=== PATIENT | female | born 1950 | race Caucasian/White ===

== ENCOUNTER 2017-03-07 10:24 | Emergency (ER) | payer MEDICARE ==
[2017-03-07 10:35] VITALS: BP 116/82
[2017-03-07] MEDS ORDERED: Sodium Chloride 0.9% 10 ML Syringe FLUSH PRN (10:54)
[2017-03-07] MEDS ORDERED: fentaNYL 100 MCG/2 ML SDV IVPUSH ONE (11:24)
--- NOTE | 2017-03-07 12:43 | EDM.PDOC ---
ED HPI GENERAL MEDICAL PROBLEM - General Chief Complaint: Abdominal Pain Stated Complaint: ABDOMINAL SWELLING Time Seen by Provider: 03/07/17 10:45 Source of Information: Reports: Patient History Limitations: Reports: No Limitations - History of Present Illness INITIAL COMMENTS - FREE TEXT/NARRATIVE: The patient presents with abdominal pain and abdominal distention. This has been going on for weeks. She has a history of liver problems. She had a paracentesis months ago. She had an US a few weeks ago that showed some ascities in pockets but nothing large enough to drain. She says she is more distended and she has more pain. She has no nausea, vomiting, fever, chills, cough, or chest pain. She may have some shortness of breath at times. Onset: Gradual Duration: Week(s): Location: Reports: Abdomen Quality: Reports: Pressure Severity: Moderate Improves with: Reports: None Worsens with: Reports: None Associated Symptoms: Reports: Shortness of Breath. Denies: Chest Pain, Cough, Fever/Chills, Nausea/Vomiting - Related Data Allergies Allergy/AdvReac Type Severity Reaction Status Date / Time diphenhydramine Allergy Hives Verified 03/07/17 10:36 hydromorphone [From Dilaudid] Allergy Hallucinati Verified 03/07/17 10:36 ons acetaminophen [From Tylenol] AdvReac liver Verified 03/07/17 10:36 disease ibuprofen AdvReac liver Verified 03/07/17 10:36 disease Home Meds: Home Meds Citalopram Hydrobromide [Citalopram HBr] 40 mg PO DAILY 08/04/13 [History] oxyCODONE 10 mg PO Q4H PRN 08/04/13 [History] Pantoprazole [ProTONIX] 40 mg PO DAILY 07/07/14 [History] Digoxin [Lanoxin] 125 mcg PO DAILY@1200 #30 tablet 10/10/14 [Rx] Lactose-Reduced Food [Boost] 237 ml PO DAILY 04/21/15 [History] Furosemide [Lasix] 20 mg PO DAILY #30 tablet 06/12/15 [Rx] Aspirin 81 mg PO BRK #100 tab.chew 11/01/15 [Rx] Metoprolol Tartrate [Lopressor] 75 mg PO Q12HR #90 tablet 11/01/15 [Rx] Rifaximin [Xifaxan] 1 tab PO DAILY 03/28/16 [History] Past Medical History HEENT History: Reports: Impaired Vision Other HEENT History: ear drum surgery, glasses, dentures, nasal surgery Cardiovascular History: Reports: Afib, Hypertension Respiratory History: Reports: Other (See Below) Other Respiratory History: R pleural effusion Gastrointestinal History: Reports: Cirrhosis, Hepatitis Other Gastrointestinal History: hepatitis C, esophageal varicies Genitourinary History: Reports: Urinary Incontinence [employer]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 Hematologic History: Reports: Anemia, Hemochromatosis Other Hematologic History: HCV Immunologic History: Reports: Other (See Below) Other Immunologic History: Hep C. Dermatologic History: Reports: Other (See Below) Other Dermatologic History: carbuncle and furbuncle to trunk - Infectious Disease History Infectious Disease History: Reports: Hepatitis C - Past Surgical History HEENT Surgical History: Reports: Naso-Sinus Surgery, Tonsillectomy GI Surgical History: Reports: Cholecystectomy, EGD, Hernia, Abdominal, Other ( See Below) Female Surgical History: Reports: Tubal Ligation Musculoskeletal Surgical History: Reports: Shoulder Surgery Social & Family History - Family History Family Medical History: Noncontributory Cardiac: Reports: Other (See Below) Other Cardiac Family History: Heart disease on Father's side. Oncologic: Reports: Other (See Below) Other Oncologic Family History: Mother had stomach, and lung CA. - Tobacco Use Smoking Status *Q: Former Smoker Years of Tobacco use: 30 Packs/Tins Daily: 0.5 Used Tobacco, but Quit: Yes Month Tobacco Last Used: "years ago" Second Hand Smoke Exposure: Yes - Caffeine Use Caffeine Use: Reports: Coffee - Alcohol Use Days Per Week of Alcohol Use: 0 - Recreational Drug Use Recreational Drug Use: No Drug Use in Last 12 Months: No - Living Situation & Occupation Living situation: Reports: , Other Occupation: Retired ED ROS GENERAL - Review of Systems Review Of Systems: See Below Constitutional: Reports: No Symptoms HEENT: Reports: No Symptoms Respiratory: Reports: No Symptoms Cardiovascular: Reports: No Symptoms Endocrine: Reports: No Symptoms GI/Abdominal: Reports: Abdominal Pain. Denies: Nausea, Vomiting : Reports: No Symptoms Musculoskeletal: Reports: No Symptoms Skin: Reports: No Symptoms Neurological: Reports: No Symptoms ED EXAM, GI/ABD - Physical Exam Exam: See Below Exam Limited By: No Limitations General Appearance: Alert, No Apparent Distress Ears: Normal External Exam Nose: Normal Inspection Head: Atraumatic, Normocephalic Neck: Normal Inspection Respiratory/Chest: No Respiratory Distress, Lungs Clear, Normal Breath Sounds Cardiovascular: Regular Rate, Rhythm, No Edema, No Murmur GI/Abdominal Exam: Soft, No Organomegaly, No Mass, Distended (Moderate) Course - Vital Signs Last Recorded V/S: Last Vital Signs Temp 97.8 F 03/07/17 10:30 Pulse 110 H 03/07/17 10:30 Resp 17 03/07/17 10:30 BP 116/82 03/07/17 10:30 Pulse Ox 97 03/07/17 10:30 - Orders/Labs/Meds Orders: Active Orders 24 hr Category Date Time Status Peripheral IV Care [RC] . DIRECTED Care 03/07/17 10:54 Active UA W/MICROSCOPIC [URIN] Stat Lab 03/07/17 10:42 Received Sodium Chloride 0.9% [Saline Flush] Med 03/07/17 10:54 Active 10 ml FLUSH ASDIRECTED PRN Peripheral IV Insertion Adult [OM.PC] Stat Oth 03/07/17 10:54 Ordered Medication Orders Sodium Chloride (Saline Flush) 10 ml FLUSH ASDIRECTED PRN PRN Reason: Keep Vein Open Last Admin: 03/07/17 11:01 Dose: 10 ml Labs: Laboratory Tests 03/07/17 03/07/17 03/07/17 Range/Units 11:00 11:00 11:00 WBC 3.41 L (3.98-10.04) K/mm3 RBC 4.53 (3.98-5.22) M/mm3 Hgb 13.2 (11.2-15.7) gm/L Hct 39.5 (34.1-44.9) % MCV 87.2 (79.4-94.8) fl MCH 29.1 (25.6-32.2) pg MCHC 33.4 (32.2-35.5) g/dl RDW Std Deviation 48.2 H (36.4-46.3) fL Plt Count 97 L (182-369) K/mm3 MPV 10.2 (9.4-12.3) fl Neut % (Auto) 72.1 H (34.0-71.1) % Lymph % (Auto) 12.3 L (19.3-51.7) % [place] % (Auto) 13.8 H (4.7-12.5) % Eos % (Auto) 1.2 (0.7-5.8) Baso % (Auto) 0.3 (0.1-1.2) % Neut # (Auto) 2.46 (1.56-6.13) K/mm3 Lymph # (Auto) 0.42 L (1.18-3.74) K/mm3 [place] # (Auto) 0.47 H (0.24-0.36) K/mm3 Eos # (Auto) 0.04 (0.04-0.36) K/mm3 Baso # (Auto) 0.01 (0.01-0.08) K/mm3 Manual Slide Review Abnormal smear Sodium 141 (136-145) mEq/L Potassium 3.4 L (3.5-5.1) mEq/L Chloride 106 (98-107) mEq/L Carbon Dioxide 28 (21-32) mEq/L Anion Gap 10.4 (5-15) BUN 9 (7-18) mg/dL Creatinine 0.9 (0.55-1.02) mg/dL Est Cr Clr Drug Dosing 61.26 mL/min Estimated GFR (MDRD) > 60 (>60) mL/min BUN/Creatinine Ratio 10.0 L (14-18) Glucose 120 H (80-115) mg/dL Calcium 8.9 (8.5-10.1) mg/dL Total Bilirubin 1.1 H (0.2-1.0) mg/dL AST 37 (15-37) U/L ALT 29 (14-59) U/L Alkaline Phosphatase 120 H (46-116) U/L Ammonia 32 (11-32) umol/L Total Protein 7.3 (6.4-8.2) g/dl Albumin 3.0 L (3.4-5.0) g/dl Globulin 4.3 gm/dL Albumin/Globulin Ratio 0.7 L (1-2) Lipase 153 (73-393) U/L Meds: Medications Generic Name Dose Route Start Last Admin Trade Name Rogelio PRN Reason Stop Dose Admin Sodium Chloride 10 ml 03/07/17 10:54 03/07/17 11:01 Saline Flush FLUSH 10 ml ASDIRECTED PRN Administration Keep Vein Open Discontinued Medications Generic Name Dose Route Start Last Admin Trade Name Rogelio PRN Reason Stop Dose Admin Fentanyl 100 mcg 03/07/17 11:24 03/07/17 11:58 Sublimaze IVPUSH 03/07/17 11:25 100 mcg ONETIME ONE Administration - Re-Assessments/Exams Free Text/Narrative Re-Assessment/Exam: 03/07/17 12:41 I ordered an IV saline lock, labs, UA and set up for paracentesis. I did the paracentesis and only got about 500mLs out. I was hoping for more but she feels better. Her WBC was a little low at 3.41. Her Hgb was normal. Her platelets are low at 97. Her K was 3.4. Her glucose was 120. Her total bili was 1.1. Her AST and ALT were both normal. Her ammonia was normal at 32. Her lipase was also normal. I will discharge her home. Departure - Departure Time of Disposition: 12:45 Disposition: Home, Self-Care 01 Condition: Good Clinical Impression: Thrombocytopenia Abdominal pain Qualifiers: Abdominal location: generalized Qualified Code(s): R10.84 - Generalized abdominal pain Cirrhosis Qualifiers: Hepatic cirrhosis type: unspecified hepatic cirrhosis Ascites presence: with ascites Qualified Code(s): K74.60 - Unspecified cirrhosis of liver Ascites Qualifiers: Ascites type: other type Qualified Code(s): R18.8 - Other ascites - Discharge Information Referrals: Susanne Barrett MD [Primary Care Provider] - 1 Week Forms: ED Department Discharge Additional Instructions: Take your medication as prescribed. Please return if you are worse. - My Orders Last 24 Hours: My Active Orders 03/07/17 10:42 UA W/MICROSCOPIC [URIN] Stat 03/07/17 10:54 Peripheral IV Care [RC] . DIRECTED Sodium Chloride 0.9% [Saline Flush] 10 ml FLUSH ASDIRECTED PRN Peripheral IV Insertion Adult [OM.PC] Stat - Assessment/Plan Last 24 Hours: My Active Orders 03/07/17 10:42 UA W/MICROSCOPIC [URIN] Stat 03/07/17 10:54 Peripheral IV Care [RC] . DIRECTED Sodium Chloride 0.9% [Saline Flush] 10 ml FLUSH ASDIRECTED PRN Peripheral IV Insertion Adult [OM.PC] Stat Paracentesis - Paracentesis Paracentesis Indication: ascites Location: RLQ Skin prep: CDC/MBT Guidelines, Sterile Drapes, Chlorhexidine Ultrasound guided: Yes Local anesthesia: lidocaine 1 % Local anesthesia volume: 5cc Number of Attempts: 1 Device Used: 8 Fr kit device Fluid: yellow Complications: No Dressing: adhesive dressing
== END 2017-03-07 13:05 | disposition home or self-care (01) ==
LOC: JD.ED 10:24
DX: K74.60 Unspecified cirrhosis of liver (principal); D69.6 Thrombocytopenia, unspecified; R18.8 Other ascites; I10 Essential (primary) hypertension; Z88.5 Allergy status to narcotic agent; Z88.6 Allergy status to analgesic agent; Z79.899 Other long term (current) drug therapy; Z79.82 Long term (current) use of aspirin; Z87.891 Personal history of nicotine dependence
CPT/HCPCS: 36415; 49082; 80053; 81001; 82140; 83690; 85025; 96374; 99284; C1729; J3010; J7050

== ENCOUNTER 2017-04-01 19:02 | Emergency (ER) | payer MEDICARE ==
[2017-04-01 19:26] VITALS: BP 116/72
[2017-04-01] MEDS ORDERED: Sodium Chloride 0.9% 10 ML Syringe FLUSH PRN (19:36)
--- NOTE | 2017-04-01 20:16 | EDM.PDOC ---
ED HPI GENERAL MEDICAL PROBLEM - General Chief Complaint: Abdominal Pain Stated Complaint: SWOLLEN STOMACH Time Seen by Provider: 04/01/17 19:35 Source of Information: Reports: Patient History Limitations: Reports: No Limitations - History of Present Illness INITIAL COMMENTS - FREE TEXT/NARRATIVE: The patient is a 66-year-old female with a history of hepatitis C and chronic end-stage liver disease who presents with abdominal distention. She states that she's had gradual worsening of abdominal distention over the past couple of weeks. She saw Dr. Schulte and in the emergency department recently and he drained ascites at that time. Since then she's had reaccumulation of her distention. She has not seen her green building design specialist in the meanwhile. States that she had been requiring regular paracenteses but then had been doing well for the last several months and it hadn't been needed. Her spironolactone was discontinued a couple months ago due to hypotension. Since then it sounds like her abdominal distentions been worsening. Minimal abdominal discomfort. No fever. She does complain of decreased appetite. No vomiting. No additional complaint. Abdomen Pain Score (Numeric/FACES): 2 - Related Data Allergies Allergy/AdvReac Type Severity Reaction Status Date / Time diphenhydramine Allergy Hives Verified 03/07/17 10:36 hydromorphone [From Dilaudid] Allergy Hallucinati Verified 03/07/17 10:36 ons acetaminophen [From Tylenol] AdvReac liver Verified 03/07/17 10:36 disease ibuprofen AdvReac liver Verified 03/07/17 10:36 disease Home Meds: Home Meds Citalopram Hydrobromide [Citalopram HBr] 20 mg PO DAILY 08/04/13 [History] oxyCODONE 10 mg PO Q4H PRN 08/04/13 [History] Pantoprazole [ProTONIX] 40 mg PO BID 07/07/14 [History] Furosemide [Lasix] 20 mg PO DAILY #30 tablet 06/12/15 [Rx] Aspirin 81 mg PO BRK #100 tab.chew 11/01/15 [Rx] Rifaximin [Xifaxan] 1 tab PO BID 03/28/16 [History] Aspirin [Halfprin] 81 mg PO DAILY 04/01/17 [History] Citalopram Hydrobromide [Celexa] 20 mg PO DAILY 04/01/17 [History] Digoxin [Lanoxin] 125 mcg PO DAILY 04/01/17 [History] Metoprolol Tartrate 25 mg PO BEDTIME 04/01/17 [History] Metoprolol Tartrate [Lopressor] 12.5 mg PO DAILY 04/01/17 [History] Past Medical History HEENT History: Reports: Impaired Vision Other HEENT History: ear drum surgery, glasses, dentures, nasal surgery Cardiovascular History: Reports: Afib, Hypertension Respiratory History: Reports: Other (See Below) Other Respiratory History: R pleural effusion Gastrointestinal History: Reports: Cirrhosis, Hepatitis Other Gastrointestinal History: hepatitis C, esophageal varicies Genitourinary History: Reports: Urinary Incontinence [employer]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 Hematologic History: Reports: Anemia, Hemochromatosis Other Hematologic History: HCV Immunologic History: Reports: Other (See Below) Other Immunologic History: Hep C. Dermatologic History: Reports: Other (See Below) Other Dermatologic History: carbuncle and furbuncle to trunk - Infectious Disease History Infectious Disease History: Reports: Hepatitis C - Past Surgical History Head Surgeries/Procedures: Reports: None HEENT Surgical History: Reports: Naso-Sinus Surgery, Tonsillectomy GI Surgical History: Reports: Cholecystectomy, EGD, Hernia, Abdominal, Other ( See Below) Female Surgical History: Reports: Tubal Ligation Endocrine Surgical History: Reports: None Musculoskeletal Surgical History: Reports: Shoulder Surgery Social & Family History - Family History Family Medical History: Noncontributory Cardiac: Reports: Other (See Below) Other Cardiac Family History: Heart disease on Father's side. Oncologic: Reports: Other (See Below) Other Oncologic Family History: Mother had stomach, and lung CA. - Tobacco Use Smoking Status *Q: Current Every Day Smoker Years of Tobacco use: 40 Packs/Tins Daily: 0.7 Used Tobacco, but Quit: Yes Month Tobacco Last Used: "years ago" Second Hand Smoke Exposure: Yes - Caffeine Use Caffeine Use: Reports: Coffee, Soda - Alcohol Use Days Per Week of Alcohol Use: 0 - Recreational Drug Use Recreational Drug Use: No Drug Use in Last 12 Months: No - Living Situation & Occupation Living situation: Reports: , Other Occupation: Retired ED ROS GENERAL - Review of Systems Review Of Systems: See Below Constitutional: Denies: Fever HEENT: Reports: No Symptoms Respiratory: Denies: Shortness of Breath Cardiovascular: Denies: Chest Pain Endocrine: Reports: No Symptoms GI/Abdominal: Denies: Abdominal Pain : Denies: Dysuria Musculoskeletal: Reports: No Symptoms Skin: Reports: No Symptoms Neurological: Reports: No Symptoms ED EXAM, GI/ABD - Physical Exam Exam: See Below Exam Limited By: No Limitations General Appearance: Alert, WD/WN, No Apparent Distress Eyes: Bilateral: Normal Appearance Ears: Normal External Exam Nose: Normal Inspection Throat/Mouth: Normal Inspection, Normal Oropharynx, Normal Voice Head: Atraumatic, Normocephalic Neck: Normal Inspection, Supple, Non-Tender, Full Range of Motion Respiratory/Chest: No Respiratory Distress, Lungs Clear, Normal Breath Sounds, Chest Non-Tender Cardiovascular: Normal Peripheral Pulses, Regular Rate, Rhythm GI/Abdominal Exam: Soft, Other (Mildly distended but soft, positive fluid wave) Back Exam: Normal Inspection Extremities: Normal Inspection Neurological: Alert, Oriented, Normal Cognition, No Motor/Sensory Deficits Psychiatric: Normal Affect, Normal Mood Skin Exam: Warm, Dry, Intact, Normal Color, No Rash Course - Vital Signs Last Recorded V/S: Last Vital Signs Temp 36.3 C 04/01/17 19:24 Pulse 110 H 04/01/17 19:24 Resp 20 04/01/17 19:24 BP 116/72 04/01/17 19:24 Pulse Ox 94 L 04/01/17 19:24 - Orders/Labs/Meds Orders: Active Orders 24 hr Category Date Time Status Peripheral IV Care [RC] . DIRECTED Care 04/01/17 19:37 Active Sodium Chloride 0.9% [Saline Flush] Med 04/01/17 19:36 Active 10 ml FLUSH ASDIRECTED PRN Peripheral IV Insertion Adult [OM.PC] Routine Oth 04/01/17 19:36 Ordered Medication Orders Sodium Chloride (Saline Flush) 10 ml FLUSH ASDIRECTED PRN PRN Reason: Keep Vein Open Last Admin: 12/17/17 19:56 Dose: 10 ml Labs: Laboratory Tests 04/01/17 04/01/17 04/01/17 Range/Units 19:50 19:50 19:50 WBC 3.34 L (3.98-10.04) K/mm3 RBC 4.21 (3.98-5.22) M/mm3 Hgb 12.1 (11.2-15.7) gm/L Hct 35.9 (34.1-44.9) % MCV 85.3 (79.4-94.8) fl MCH 28.7 (25.6-32.2) pg MCHC 33.7 (32.2-35.5) g/dl RDW Std Deviation 48.2 H (36.4-46.3) fL Plt Count 96 L (182-369) K/mm3 MPV 10.3 (9.4-12.3) fl Neut % (Auto) 66.7 (34.0-71.1) % Lymph % (Auto) 16.8 L (19.3-51.7) % [place] % (Auto) 15.3 H (4.7-12.5) % Eos % (Auto) 0.6 L (0.7-5.8) Baso % (Auto) 0.3 (0.1-1.2) % Neut # (Auto) 2.23 (1.56-6.13) K/mm3 Lymph # (Auto) 0.56 L (1.18-3.74) K/mm3 [place] # (Auto) 0.51 H (0.24-0.36) K/mm3 Eos # (Auto) 0.02 L (0.04-0.36) K/mm3 Baso # (Auto) 0.01 (0.01-0.08) K/mm3 Manual Slide Review Abnormal smear PT 16.0 H (8.0-13.0) SECONDS INR 1.43 Sodium 140 (136-145) mEq/L Potassium 3.4 L (3.5-5.1) mEq/L Chloride 104 (98-107) mEq/L Carbon Dioxide 28 (21-32) mEq/L Anion Gap 11.4 (5-15) BUN 6 L (7-18) mg/dL Creatinine 0.9 (0.55-1.02) mg/dL Est Cr Clr Drug Dosing 59.97 mL/min Estimated GFR (MDRD) > 60 (>60) mL/min BUN/Creatinine Ratio 6.7 L (14-18) Glucose 87 (80-115) mg/dL Calcium 8.3 L (8.5-10.1) mg/dL Total Bilirubin 1.2 H (0.2-1.0) mg/dL AST 30 (15-37) U/L ALT 18 (14-59) U/L Alkaline Phosphatase 102 (46-116) U/L Troponin I < 0.017 (0.00-0.056) ng/mL Total Protein 6.9 (6.4-8.2) g/dl Albumin 2.9 L (3.4-5.0) g/dl Globulin 4.0 gm/dL Albumin/Globulin Ratio 0.7 L (1-2) Lipase 109 (73-393) U/L Meds: Medications Generic Name Dose Route Start Last Admin Trade Name Freq PRN Reason Stop Dose Admin Sodium Chloride 10 ml 04/01/17 19:36 04/01/17 19:56 Saline Flush FLUSH 10 ml ASDIRECTED PRN Administration Keep Vein Open - Re-Assessments/Exams Free Text/Narrative Re-Assessment/Exam: 04/01/17 21:27 Lab significant for creatinine 0.9, bilirubin 1.2, no transaminitis, normal CBC. Bedside ultrasound shows mild ascites. She does not have tense ascites, and is only mildly distended. I don't think that she needs a diagnostic paracentesis tonight. I also think that she can wait for therapeutic paracentesis. There is no indication for an emergency paracentesis at this time. I discussed this with the patient. Encouraged her to follow-up with her green building design specialist who she has not seen recently. Her specialist may consider restarting her spironolactone given that her blood pressure appears to be improved. They can also schedule her for regular paracenteses as needed. Discussed return precautions. Departure - Departure Time of Disposition: 21:21 Disposition: Home, Self-Care 01 Clinical Impression: Ascites Qualifiers: Ascites type: other type Qualified Code(s): R18.8 - Other ascites - Discharge Information Instructions: Ascites Referrals: Susanne Barrett MD [Primary Care Provider] - Forms: ED Department Discharge Additional Instructions: 1. Follow up with your green building design specialist as soon as possible 2. Return to the ED if you have new or worsening concerning symptoms, including worsening abdominal pain, fever, or severe distension - My Orders Last 24 Hours: My Active Orders 04/01/17 19:36 Sodium Chloride 0.9% [Saline Flush] 10 ml FLUSH ASDIRECTED PRN Peripheral IV Insertion Adult [OM.PC] Routine 04/01/17 19:37 Peripheral IV Care [RC] . DIRECTED - Assessment/Plan Last 24 Hours: My Active Orders 04/01/17 19:36 Sodium Chloride 0.9% [Saline Flush] 10 ml FLUSH ASDIRECTED PRN Peripheral IV Insertion Adult [OM.PC] Routine 04/01/17 19:37 Peripheral IV Care [RC] . DIRECTED
== END 2017-04-01 21:40 | disposition home or self-care (01) ==
LOC: JD.ED 19:02
DX: R18.8 Other ascites (principal); Z88.5 Allergy status to narcotic agent; Z88.6 Allergy status to analgesic agent; K72.90 Hepatic failure, unspecified without coma; I10 Essential (primary) hypertension; I48.91 Unspecified atrial fibrillation; F17.210 Nicotine dependence, cigarettes, uncomplicated; Z79.82 Long term (current) use of aspirin; Z90.49 Acquired absence of other specified parts of digestive tract; Z98.890 Other specified postprocedural states
CPT/HCPCS: 36415; 80053; 83690; 84484; 85025; 85610; 99284; J7050; 99283

== ENCOUNTER 2017-05-17 18:46 | Emergency (ER) | payer MEDICARE ==
[2017-05-17 19:07] VITALS: BP 121/68
[2017-05-17] MEDS ORDERED: Sodium Chloride 0.9% 10 ML Syringe FLUSH PRN (19:08)
[2017-05-17] MEDS ORDERED: Morphine 2 MG/ML Syringe IVPUSH ONE ×3 (19:17→20:58)
[2017-05-17] MEDS ORDERED: Famotidine 20 MG/2 ML SDV IVPUSH ONE (19:17)
[2017-05-17] MEDS ORDERED: Ondansetron 4 MG/2 ML SDV IVPUSH ONE (19:17)
[2017-05-17] MEDS ORDERED: Sodium Chloride 0.9% 500 ML IV ONE (19:21)
--- NOTE | 2017-05-17 19:59 | EDM.PDOC ---
ED HPI GENERAL MEDICAL PROBLEM - General Chief Complaint: Abdominal Pain Stated Complaint: abdominal pain Time Seen by Provider: 05/17/17 19:01 Source of Information: Reports: Patient, RN Notes Reviewed - History of Present Illness INITIAL COMMENTS - FREE TEXT/NARRATIVE: 66-year-old female with history of hep C that had paracentesis yesterday and also had EGD. She states that she had a varicosity cauterized lower esophagus. She did well with all of that but today does have severe pain upper mid abdomen , lower anterior chest. He states it is painful to swallow. She has been drinking very small amounts of water. Is not eaten anything appreciably. Is supposed to be on clear liquids for a few days. No fever or chills. She is not short of breath and there is no pain with deep breathing. No radiation of pain to her back. Upper Abdomen Pain Score (Numeric/FACES): 10 - Related Data Allergies Allergy/AdvReac Type Severity Reaction Status Date / Time diphenhydramine Allergy Hives Verified 05/17/17 19:48 hydromorphone [From Dilaudid] Allergy Hallucinati Verified 05/17/17 19:48 ons acetaminophen [From Tylenol] AdvReac liver Verified 05/17/17 19:48 disease ibuprofen AdvReac liver Verified 05/17/17 19:48 disease Home Meds: Home Meds oxyCODONE 10 mg PO Q4H PRN 08/04/13 [History] Pantoprazole [ProTONIX] 40 mg PO BID 07/07/14 [History] Rifaximin [Xifaxan] 550 mg PO BID 03/28/16 [History] Aspirin [Halfprin] 81 mg PO DAILY 04/01/17 [History] Citalopram Hydrobromide [Celexa] 20 mg PO DAILY 04/01/17 [History] Digoxin [Lanoxin] 125 mcg PO DAILY 04/01/17 [History] Metoprolol Tartrate [Lopressor] 50 mg PO BID 04/01/17 [History] Furosemide [Lasix] 40 mg PO DAILY 05/17/17 [History] Midodrine 5 mg PO DAILY 05/17/17 [History] Spironolactone [Aldactone] 25 mg PO DAILY 05/17/17 [History] Past Medical History HEENT History: Reports: Impaired Vision Other HEENT History: ear drum surgery, glasses, dentures, nasal surgery Cardiovascular History: Reports: Afib, Hypertension Respiratory History: Reports: Other (See Below) Other Respiratory History: R pleural effusion Gastrointestinal History: Reports: Cirrhosis, Hepatitis Other Gastrointestinal History: hepatitis C, esophageal varicies Genitourinary History: Reports: Urinary Incontinence [employer] History: Reports: , Other (See Below) Other OB/BYN History: esophageal varicies Musculoskeletal History: Reports: Osteoarthritis Other Musculoskeletal History: R shoulder pain after fall at 2015 Neurological History: Reports: None Psychiatric History: Reports: Anxiety, Depression, Other (See Below) Other Psychiatric History: gets anxious and sometimes needs medication while in the hospital. Hematologic History: Reports: Anemia, Hemochromatosis Other Hematologic History: HCV Immunologic History: Reports: Other (See Below) Other Immunologic History: Hep C. Dermatologic History: Reports: Other (See Below) Other Dermatologic History: carbuncle and furbuncle to trunk - Infectious Disease History Infectious Disease History: Reports: Hepatitis C - Past Surgical History Head Surgeries/Procedures: Reports: None HEENT Surgical History: Reports: Naso-Sinus Surgery, Tonsillectomy GI Surgical History: Reports: Cholecystectomy, EGD, Hernia, Abdominal, Other ( See Below) Female Surgical History: Reports: Tubal Ligation Endocrine Surgical History: Reports: None Musculoskeletal Surgical History: Reports: Shoulder Surgery Social & Family History - Family History Family Medical History: Noncontributory Cardiac: Reports: Other (See Below) Other Cardiac Family History: Heart disease on Father's side. Oncologic: Reports: Other (See Below) Other Oncologic Family History: Mother had stomach, and lung CA. - Tobacco Use Smoking Status *Q: Unknown Ever Smoked Years of Tobacco use: 40 Packs/Tins Daily: 0.7 Used Tobacco, but Quit: Yes Month Tobacco Last Used: "years ago" Second Hand Smoke Exposure: Yes - Caffeine Use Caffeine Use: Reports: Coffee - Alcohol Use Days Per Week of Alcohol Use: 0 - Recreational Drug Use Recreational Drug Use: No Drug Use in Last 12 Months: No - Living Situation & Occupation Living situation: Reports: , Other Occupation: Retired ED ROS GENERAL - Review of Systems Review Of Systems: See Below Constitutional: Denies: Fever, Chills, Diaphoresis HEENT: Denies: Throat Pain Respiratory: Denies: Shortness of Breath, Pleuritic Chest Pain Cardiovascular: Reports: Chest Pain (Lower anterior chest worse with swallowing) GI/Abdominal: Reports: Abdominal Pain (Upper mid abdomen), Decreased Appetite. Denies: Nausea, Vomiting Musculoskeletal: Denies: Back Pain Skin: Reports: No Symptoms Neurological: Reports: No Symptoms ED EXAM, GI/ABD - Physical Exam Exam: See Below General Appearance: Alert, Mild Distress Eyes: Bilateral: Normal Appearance Throat/Mouth: Other Head: No: Facial Swelling (Mucosa mildly dry) Neck: Supple, Full Range of Motion Respiratory/Chest: No Respiratory Distress, Lungs Clear, Normal Breath Sounds Cardiovascular: Regular Rate, Rhythm GI/Abdominal Exam: Tender (Mild upper mid abdominal tenderness lower abdomen nontender). No: Guarding, Rebound Back Exam: No: CVA Tenderness (L), CVA Tenderness (R) Extremities: Normal Inspection. No: Pedal Edema, Leg Pain Neurological: Alert, Oriented, No Motor/Sensory Deficits Skin Exam: Warm, Dry, Normal Color Course - Vital Signs Last Recorded V/S: Last Vital Signs Temp 97 F 05/17/17 19:04 Pulse 98 05/17/17 19:04 Resp 18 05/17/17 19:04 BP 121/68 05/17/17 19:04 Pulse Ox 97 05/17/17 19:04 - Orders/Labs/Meds Orders: Active Orders 24 hr Category Date Time Status Peripheral IV Care [RC] . DIRECTED Care 05/17/17 19:09 Active Chest 1V Frontal [CR] Stat Exams 05/17/17 19:59 Taken Sodium Chloride 0.9% [Saline Flush] Med 05/17/17 19:08 Active 10 ml FLUSH ASDIRECTED PRN Peripheral IV Insertion Adult [OM.PC] Stat Oth 05/17/17 19:08 Ordered Medication Orders Sodium Chloride (Saline Flush) 10 ml FLUSH ASDIRECTED PRN PRN Reason: Keep Vein Open Last Admin: 05/17/17 19:38 Dose: 10 ml Labs: Laboratory Tests 05/17/17 05/17/17 Range/Units 19:22 19:22 WBC 5.72 (3.98-10.04) K/mm3 RBC 4.79 (3.98-5.22) M/mm3 Hgb 13.4 (11.2-15.7) gm/L Hct 40.1 (34.1-44.9) % MCV 83.7 (79.4-94.8) fl MCH 28.0 (25.6-32.2) pg MCHC 33.4 (32.2-35.5) g/dl RDW Std Deviation 53.4 H (36.4-46.3) fL Plt Count 115 L (182-369) K/mm3 MPV 10.1 (9.4-12.3) fl Neut % (Auto) 76.8 H (34.0-71.1) % Lymph % (Auto) 10.7 L (19.3-51.7) % [place] % (Auto) 12.1 (4.7-12.5) % Eos % (Auto) 0 L (0.7-5.8) Baso % (Auto) 0.2 (0.1-1.2) % Neut # (Auto) 4.40 (1.56-6.13) K/mm3 Lymph # (Auto) 0.61 L (1.18-3.74) K/mm3 [place] # (Auto) 0.69 H (0.24-0.36) K/mm3 Eos # (Auto) 0.00 L (0.04-0.36) K/mm3 Baso # (Auto) 0.01 (0.01-0.08) K/mm3 Sodium 138 (136-145) mEq/L Potassium 3.8 (3.5-5.1) mEq/L Chloride 101 (98-107) mEq/L Carbon Dioxide 28 (21-32) mEq/L Anion Gap 12.8 (5-15) BUN 8 (7-18) mg/dL Creatinine 1.0 (0.55-1.02) mg/dL Est Cr Clr Drug Dosing 53.98 mL/min Estimated GFR (MDRD) 55 (>60) mL/min BUN/Creatinine Ratio 8.0 L (14-18) Glucose 84 (80-115) mg/dL Calcium 8.7 (8.5-10.1) mg/dL Total Bilirubin 1.5 H (0.2-1.0) mg/dL AST 35 (15-37) U/L ALT 24 (14-59) U/L Alkaline Phosphatase 99 (46-116) U/L Total Protein 8.2 (6.4-8.2) g/dl Albumin 3.2 L (3.4-5.0) g/dl Globulin 5.0 gm/dL Albumin/Globulin Ratio 0.6 L (1-2) Lipase 138 (73-393) U/L Meds: Medications Generic Name Dose Route Start Last Admin Trade Name Rogelio PRN Reason Stop Dose Admin Sodium Chloride 10 ml 05/17/17 19:08 05/17/17 19:38 Saline Flush FLUSH 10 ml ASDIRECTED PRN Administration Keep Vein Open Discontinued Medications Generic Name Dose Route Start Last Admin Trade Name Rogelio PRN Reason Stop Dose Admin Famotidine 20 mg 05/17/17 19:17 05/17/17 19:37 Pepcid IVPUSH 05/17/17 19:18 20 mg ONETIME ONE Administration Sodium Chloride 500 mls @ 999 mls/hr 05/17/17 19:21 05/17/17 19:28 Normal Saline IV 05/17/17 19:51 999 mls/hr .BOLUS ONE Administration Morphine Sulfate 2 mg 05/17/17 19:17 05/17/17 19:34 Morphine IVPUSH 05/17/17 19:18 2 mg ONETIME ONE Administration Morphine Sulfate 2 mg 05/17/17 20:04 05/17/17 20:10 Morphine IVPUSH 05/17/17 20:05 2 mg ONETIME ONE Administration Morphine Sulfate 2 mg 05/17/17 20:58 05/17/17 21:17 Morphine IVPUSH 05/17/17 20:59 2 mg ONETIME ONE Administration Ondansetron HCl 2 mg 05/17/17 19:17 05/17/17 19:35 Zofran IVPUSH 05/17/17 19:18 2 mg ONETIME ONE Administration - Re-Assessments/Exams Free Text/Narrative Re-Assessment/Exam: 05/17/17 21:28 Drink plenty of water to maintain hydration, continue with clear liquid diet for now. You have been given 3 doses of morphine IV while here in the ED this evening. When that does wear off after 6-8 hours you may continue with your previously prescribed pain medication as needed. Call your [place] providers if not better by tomorrow morning. Return to ED as needed. Departure - Departure Time of Disposition: 21:32 Disposition: Home, Self-Care 01 Condition: Fair Clinical Impression: Abdominal pain Qualifiers: Abdominal location: generalized Qualified Code(s): R10.84 - Generalized abdominal pain - Discharge Information Referrals: Susanne Barrett MD [Primary Care Provider] - Forms: ED Department Discharge Additional Instructions: Drink plenty of water to maintain hydration, continue with clear liquids for now , the morphine we have given should provide good pain relief for the next 8-10 hours, he may then go back to take any oral pain medication as previously prescribed, her medical providers in [place] if not better by morning as expected. - My Orders Last 24 Hours: My Active Orders 05/17/17 19:08 Sodium Chloride 0.9% [Saline Flush] 10 ml FLUSH ASDIRECTED PRN Peripheral IV Insertion Adult [OM.PC] Stat 05/17/17 19:09 Peripheral IV Care [RC] . DIRECTED 05/17/17 19:59 Chest 1V Frontal [CR] Stat - Assessment/Plan Last 24 Hours: My Active Orders 05/17/17 19:08 Sodium Chloride 0.9% [Saline Flush] 10 ml FLUSH ASDIRECTED PRN Peripheral IV Insertion Adult [OM.PC] Stat 05/17/17 19:09 Peripheral IV Care [RC] . DIRECTED 05/17/17 19:59 Chest 1V Frontal [CR] Stat
--- NOTE | 2017-05-18 14:15 | CR ---
Chest: Portable view of the chest was obtained. Comparison: Prior chest x-ray of 04/17/16. Chronic pleural thickening within the right lung base is seen. Lungs otherwise are clear. Heart size is normal. Tortuous thoracic aorta is seen. Previous right shoulder surgery is noted. Deformity is noted within the glenohumeral joint of the right shoulder. Impression: 1. Chronic change within the right lung base. Other incidental findings. 2. Nothing acute is appreciated on portable chest x-ray. Diagnostic code #2
== END 2017-05-17 21:41 | disposition home or self-care (01) ==
LOC: JD.ED 18:46
DX: R10.84 Generalized abdominal pain (principal); I48.91 Unspecified atrial fibrillation; I10 Essential (primary) hypertension; F32.9 Major depressive disorder, single episode, unspecified; Z90.49 Acquired absence of other specified parts of digestive tract; Z98.890 Other specified postprocedural states; Z79.82 Long term (current) use of aspirin; Z79.899 Other long term (current) drug therapy; Z88.5 Allergy status to narcotic agent; Z88.6 Allergy status to analgesic agent; Z88.8 Allergy status to other drugs, medicaments and biological substances
CPT/HCPCS: 36415; 71045; 71045-26; 80053; 83690; 85025; 96361; 96374; 96375; 96376; 99284-25; J2270; J2405; J7040; J7050

== ENCOUNTER 2017-07-30 18:39 | Emergency (ER) | payer MEDICARE ==
[2017-07-30 18:53] VITALS: BP 99/68
--- NOTE | 2017-07-30 19:58 | EDM.PDOC ---
ED HPI GENERAL MEDICAL PROBLEM - General Chief Complaint: Abdominal Pain Stated Complaint: [place] Time Seen by Provider: 07/30/17 19:38 Source of Information: Reports: Patient, Family (Son, granddaughter) History Limitations: Reports: No Limitations - History of Present Illness INITIAL COMMENTS - FREE TEXT/NARRATIVE: The patient has a prominent umbilical hernia, with the expectation that she will have it surgically repaired at some point in the future. She states that she developed left lower quadrant pain around 14:00 to 15:00 this afternoon. She is unable to describe its character. It feels better if she is upright, otherwise, she has not identified any modifiers. She has associated nausea, but no recent fever, emesis, constipation, diarrhea, or urinary symptoms. She states that she had similar symptoms in the past, due to hernia, which was repaired, however, on examination, there are no scars in that area to suggest a herniorrhaphy. The patient states that the scars must have disappeared. The patient states that she took OxyContin at home, then was given morphine per EMS, and at this time, she has no symptoms whatsoever. The patient's PCP is Dr. Susanne Barrett. Lower Abdominal Pain Score (Numeric/FACES): 3 - Related Data Allergies Allergy/AdvReac Type Severity Reaction Status Date / Time diphenhydramine Allergy Hives Verified 05/17/17 19:48 hydromorphone [From Dilaudid] Allergy Hallucinati Verified 05/17/17 19:48 ons acetaminophen [From Tylenol] AdvReac liver Verified 05/17/17 19:48 disease ibuprofen AdvReac liver Verified 05/17/17 19:48 disease Home Meds: Home Meds oxyCODONE 10 mg PO Q4H PRN 08/04/13 [History] Pantoprazole [ProTONIX] 40 mg PO BID 07/07/14 [History] Rifaximin [Xifaxan] 550 mg PO BID 03/28/16 [History] Aspirin [Halfprin] 81 mg PO DAILY 04/01/17 [History] Citalopram Hydrobromide [Celexa] 20 mg PO DAILY 04/01/17 [History] Digoxin [Lanoxin] 125 mcg PO DAILY 04/01/17 [History] Metoprolol Tartrate [Lopressor] 12.5 mg PO DAILY 04/01/17 [History] Furosemide [Lasix] 20 mg PO DAILY 05/17/17 [History] Midodrine 5 mg PO BID 05/17/17 [History] Spironolactone [Aldactone] 25 mg PO DAILY 05/17/17 [History] Metoprolol Tartrate 25 mg PO BEDTIME 07/30/17 [History] oxyCODONE 10 mg PO Q4H PRN 07/30/17 [History] Past Medical History HEENT History: Reports: Impaired Vision Other HEENT History: wears glasses Cardiovascular History: Reports: Afib (paroxysmal), Hypertension Gastrointestinal History: Reports: Cirrhosis, Other (See Below) (Esophageal varices) Genitourinary History: Reports: Urinary Incontinence [employer] History: Reports: Musculoskeletal History: Reports: Osteoarthritis Psychiatric History: Reports: Anxiety, Depression Hematologic History: Reports: Anemia, Hemochromatosis - Infectious Disease History Infectious Disease History: Reports: Hepatitis C - Past Surgical History HEENT Surgical History: Reports: Naso-Sinus Surgery (bilateral TM repair), Tonsillectomy GI Surgical History: Reports: Cholecystectomy, EGD, Hernia, Inguinal, Other ( See Below) (Esophageal varices banding) Female Surgical History: Reports: Tubal Ligation Musculoskeletal Surgical History: Reports: Shoulder Surgery (right rotator cuff repair), Other (See Below) (Bilateral bunionectomy) Social & Family History - Family History Family Medical History: Noncontributory Cardiac: Reports: Other (See Below) Other Cardiac Family History: Heart disease on Father's side. Oncologic: Reports: Other (See Below) Other Oncologic Family History: Mother had stomach, and lung CA. - Tobacco Use Smoking Status *Q: Current Every Day Smoker Years of Tobacco use: 40 Packs/Tins Daily: 0.5 - Caffeine Use Caffeine Use: Reports: Coffee - Alcohol Use Days Per Week of Alcohol Use: 0 Date/Time of Last Drink Comment: Quit 2006 - Recreational Drug Use Recreational Drug Use: No - Living Situation & Occupation Living situation: Reports: , Alone Occupation: Retired ED ROS GENERAL - Review of Systems Review Of Systems: ROS reveals no pertinent complaints other than HPI. ED EXAM, GI/ABD - Physical Exam Exam: See Below Exam Limited By: No Limitations General Appearance: Alert, WD/WN, No Apparent Distress Eyes: Bilateral: Normal Appearance, EOMI Ears: Normal External Exam, Hearing Grossly Normal Nose: Normal Inspection, No Blood Throat/Mouth: Normal Inspection, Normal Lips, Normal Voice, No Airway Compromise Head: Atraumatic, Normocephalic Neck: Normal Inspection, Full Range of Motion Respiratory/Chest: No Respiratory Distress, Lungs Clear, Normal Breath Sounds, No Accessory Muscle Use Cardiovascular: Normal Peripheral Pulses, No Edema, No Gallop, No JVD, No Murmur , No Rub, Irregularly Irregular (regular rate) GI/Abdominal Exam: Normal Bowel Sounds, Soft, Non-Tender (even to LLQ), No Organomegaly, No Distention, No Abnormal Bruit, No Mass, Hernia (Prominent umbilical, easily reduced. No left inguinal or lower left abdominal hernia palpated) (Female) Exam: Deferred Rectal (Female) Exam: Deferred Back Exam: Normal Inspection, Full Range of Motion, NT Extremities: Normal Inspection, Normal Range of Motion, No Pedal Edema, Normal Capillary Refill Neurological: Alert, Oriented, Normal Cognition, No Motor/Sensory Deficits Psychiatric: Normal Affect Skin Exam: Warm, Dry, Intact, Normal Color, No Rash Course - Vital Signs Last Recorded V/S: Last Vital Signs Temp 37.2 C 07/30/17 18:45 Pulse 88 07/30/17 18:45 Resp 16 07/30/17 18:45 BP 99/68 07/30/17 18:45 Pulse Ox 95 07/30/17 18:45 - Orders/Labs/Meds Labs: Laboratory Tests 07/30/17 07/30/17 07/30/17 Range/Units 20:02 20:10 20:10 WBC 4.35 (3.98-10.04) K/mm3 RBC 4.52 (3.98-5.22) M/mm3 Hgb 13.8 (11.2-15.7) gm/L Hct 41.2 (34.1-44.9) % MCV 91.2 (79.4-94.8) fl MCH 30.5 (25.6-32.2) pg MCHC 33.5 (32.2-35.5) g/dl RDW Std Deviation 62.6 H (36.4-46.3) fL Plt Count 72 L (182-369) K/mm3 MPV 9.9 (9.4-12.3) fl Neutrophils % (Manual) 81 H (40-60) % Band Neutrophils % 1 (0-10) % Lymphocytes % (Manual) 15 L (20-40) % Atypical Lymphs % 0 % Monocytes % (Manual) 3 (2-10) % Eosinophils % (Manual) 0 L (0.7-5.8) % Basophils % (Manual) 0 L (0.1-1.2) Platelet Estimate Decreased Plt Morphology Comment See note Poikilocytosis 1+ slight Anisocytosis 1+ slight RBC Morph Comment Not Reportable Sodium 139 (136-145) mEq/L Potassium 4.8 (3.5-5.1) mEq/L Chloride 106 (98-107) mEq/L Carbon Dioxide 29 (21-32) mEq/L Anion Gap 8.8 (5-15) BUN 8 (7-18) mg/dL Creatinine 0.9 (0.55-1.02) mg/dL Est Cr Clr Drug Dosing 59.12 mL/min Estimated GFR (MDRD) > 60 (>60) mL/min BUN/Creatinine Ratio 8.9 L (14-18) Glucose 137 H (80-115) mg/dL Calcium 8.2 L (8.5-10.1) mg/dL Total Bilirubin 0.9 (0.2-1.0) mg/dL AST 33 (15-37) U/L ALT 24 (14-59) U/L Alkaline Phosphatase 116 (46-116) U/L Total Protein 7.7 (6.4-8.2) g/dl Albumin 3.1 L (3.4-5.0) g/dl Globulin 4.6 gm/dL Albumin/Globulin Ratio 0.7 L (1-2) Urine Color Yellow (Yellow) Urine Appearance Clear (Clear) Urine pH 6.0 (5.0-8.0) Ur Specific [place] 1.020 (1.005-1.030) Urine Protein Negative (Negative) Urine Glucose (UA) Negative (Negative) Urine Ketones Negative (Negative) Urine Occult Blood 2+ H (Negative) Urine Nitrite Negative (Negative) Urine Bilirubin Negative (Negative) Urine Urobilinogen 0.2 (0.2-1.0) Ur Leukocyte Esterase Negative (Negative) Urine RBC 0-5 (0-5) /hpf Urine WBC 0-5 (0-5) /hpf Ur Epithelial Cells 0-5 (0-5) /hpf Urine Bacteria Few (FEW) /hpf Urine Mucus Few (FEW) /hpf - Re-Assessments/Exams Free Text/Narrative Re-Assessment/Exam: 07/30/17 19:56 The patient reports lower left quadrant abdominal pain since 14:00 to 15:00 today, pain made better by standing. She has associated nausea, but no other symptoms. On examination, I do not find evidence for an abdominal wall or inguinal hernia. I am therefore recommending conservative management. I have ordered blood work and a urinalysis, but not an imaging study at this time. If her symptoms persist, a CT scan may be appropriate in the future. 07/30/17 21:46 Test results discussed with the patient and her granddaughter. Layla's workup is unremarkable. As above, I found no evidence for an inguinal hernia, incarcerated or otherwise, on physical examination, and am therefore not recommending a CT scan at this time, however, I recommended to the patient that if her symptoms persist, that she return to the ED for reevaluation. The patient is satisfied with that. Departure - Departure Time of Disposition: 21:47 Disposition: Home, Self-Care 01 Condition: Good Clinical Impression: Left lower quadrant abdominal pain of unknown etiology - Discharge Information Instructions: Abdominal Pain, Adult Referrals: Susanne Barrett MD [Primary Care Provider] - Forms: ED Department Discharge Additional Instructions: You were seen in the emergency room for lower left abdominal pain and nausea. On physical examination no hernia was found. Workup in the ER included blood work and a urinalysis, all of which were unremarkable. The cause of your abdominal pain is not clear, but does not appear to be due to a hernia. If your symptoms persist, please return to the ER for reevaluation, that may include a CT scan of your abdomen and pelvis.
== END 2017-07-30 21:54 | disposition home or self-care (01) ==
LOC: JD.ED 18:39
DX: R10.32 Left lower quadrant pain (principal); I48.91 Unspecified atrial fibrillation; I10 Essential (primary) hypertension; F41.9 Anxiety disorder, unspecified; F32.9 Major depressive disorder, single episode, unspecified; D64.9 Anemia, unspecified; F17.210 Nicotine dependence, cigarettes, uncomplicated; Z88.5 Allergy status to narcotic agent; Z88.8 Allergy status to other drugs, medicaments and biological substances; Z79.82 Long term (current) use of aspirin; Z79.899 Other long term (current) drug therapy; Z90.49 Acquired absence of other specified parts of digestive tract
CPT/HCPCS: 36415; 80053; 81001; 85025; 99283; 99284